=== PATIENT | male | born 1985 | race Caucasian/White ===

== ENCOUNTER 2023-07-20 19:21 | Emergency (ER) | payer BC, OTHER ==
[2023-07-20] MEDS ORDERED: Diphtheria,Pertussis(Acell),Tetanus Vaccine 0.5 ML Syringe IM ONE (20:35)
[2023-07-20] MEDS ORDERED: Clindamycin HCl 150 MG Cap PO ONE (21:10)
[2023-07-20] MEDS ORDERED: Ibuprofen 600 MG Tab PO ONE (21:10)
== END 2023-07-20 21:30 | disposition home or self-care (01) ==
LOC: JD.ED 19:21
DX: S69.92XA Unspecified injury of left wrist, hand and finger(s), initial encounter (principal); Z88.1 Allergy status to other antibiotic agents; Z23 Encounter for immunization; X58.XXXA Exposure to other specified factors, initial encounter; Y92.69 Other specified industrial and construction area as the place of occurrence of the external cause
CPT/HCPCS: 90471; 90715; 99283; A9270